=== PATIENT | male | born 1960 | race Caucasian/White ===

== ENCOUNTER 2017-03-30 11:43 | Inpatient (IN) | payer OTHER ==
[~2017-03-30] VITALS: Ht 182.9 cm; Wt 99.1 kg
[~2017-03-30 11:43] MED LIST: FOLI-49; GLIM2TAB PO; LEVA0.3112; LEVE100018; LEVE500S8 PO; MONT10TA21; PHEN64.8; SITA50TA2 PO; [UNRECOGNIZED DRUG - CODE]
--- NOTE | 2017-03-30 11:52 | ERD ---
ER Documentation Chief Complaint Chief Complaint SEIZURE LAST NIGHT SEVERAL TIMES. NO TRAUMA. NO NEURO DEF AT THIS TIME. HPI The patient is a 56-year-old male, presenting to the ER because of 3 seizure last night, a seizure this morning. Last seizure was about 9 AM this morning lasted about 20 minutes according to the patient. He was discharged from [facility] 2 days ago for seizure disorder. Really taking Keppra 1500 mg twice a day. He complains of urinary incontinence this morning, his headache, trauma, neck pain, chest pain, dyspnea, abdominal pain, vomiting, dysuria, diarrhea. He smoke a pack a day, denies drinking, denies illicit drug Medical history: Seizure disorder, diabetes mellitus, hypertension, COPD, asthma Surgical history: Cranioplasty ROS All systems reviewed and are negative except as per history of present illness. Medications Home Meds Reported Medications Sitagliptin* (Januvia*) 50 Mg Tablet, 50 MG PO DAILY, #30 TAB 03/30/17 Levetiracetam* (Keppra*) 500 Mg Tablet, 1500 MG PO BID, TAB 03/30/17 Glimepiride* (Glimepiride*) 2 Mg Tablet, 2 MG PO WITH BREAKFAST, TAB 06/26/14 Discontinued Reported Medications Sitagliptin* (Januvia*) 50 Mg Tablet, 50 MG PO DAILY, TAB 06/26/14 Levetiracetam* (Keppra*) 500 Mg/5 Ml Solution, 750 MG PO BID, BOTTLE 06/26/14 Folic Acid* (Folic Acid*) 1 Mg Tablet 05/14/10 Levalbuterol* (Xopenex*) 0.31 Mg/3 Ml Nebu 05/14/10 Phenobarbital* (Phenobarbital*) 64.8 Mg Tablet 05/14/10 Montelukast Sodium* (Singulair*) 10 Mg Tablet 05/04/10 Levetiracetam* (Keppra*) 1,000 Mg Tablet 05/04/10 Theophylline* (Otis-Dur*) 100 Mg Tabsr 05/04/10 Allergies Allergies: Coded Allergies: No Known Allergies (Verified Allergy, Mild, 03/30/17) PMhx/Soc History of Surgery: No Anesthesia Reaction: No Hx Neurological Disorder: No Hx Respiratory Disorders: Yes (ASTHMA) Hx Cardiac Disorders: Yes (HTN) Hx Psychiatric Problems: No Hx Miscellaneous Medical Probl: No Hx Alcohol Use: Yes Hx Substance Use: No Hx Tobacco Use: No Physical Exam Vitals Vital Signs Date Time Temp Pulse Resp B/P Pulse Ox O2 Delivery O2 Flow Rate FiO2 03/30/17 13:21 92 17 157/90 100 Room Air 03/30/17 11:46 98.5 82 21 162/98 98 Physical Exam Const: No acute distress. Head: Atraumatic. Eyes: Normal Conjunctiva. ENT: Normal External Ears, Nose and Mouth. Neck: Full range of motion. No meningismus. Resp: Clear to auscultation bilaterally. Cardio: Regular rate and rhythm. Abd: Soft, non distended, normal bowel sounds, non tender. Skin: No petechiae or rashes. Back: No midline or flank tenderness. Ext: No cyanosis, or edema. Neur: Awake and alert. No focal deficit. No tongue bite Psych: Normal Mood and Affect. Result Diagram: 03/30/17 1200 03/30/17 1200 Results 24 hrs Laboratory Tests Test 03/30/17 11:57 03/30/17 12:00 Bedside Glucose 201mg/dL White Blood Count 11.310^3/ul Red Blood Count 5.1610^6/ul Hemoglobin 15.1g/dl Hematocrit 42.8% Mean Corpuscular Volume 82.9fl Mean Corpuscular Hemoglobin 29.3pg Mean Corpuscular Hemoglobin Concent 35.3g/dl Red Cell Distribution Width 13.1% Platelet Count 64418^3/UL Mean Platelet Volume 11.5fl Neutrophils % 77.7% Lymphocytes % 12.6% Monocytes % 6.8% Eosinophils % 1.8% Basophils % 0.6% Nucleated Red Blood Cells % 0.0/100WBC Neutrophils # 8.810^3/ul Lymphocytes # 1.410^3/ul Monocytes # 0.810^3/ul Eosinophils # 0.210^3/ul Basophils # 0.110^3/ul Nucleated Red Blood Cells # 0.010^3/ul Sodium Level 141mmol/L Potassium Level 3.8mmol/L Chloride Level 103mmol/L Carbon Dioxide Level 24mmol/L Anion Gap 18 Blood Urea Nitrogen 8mg/dl Creatinine 1.06mg/dl Glucose Level 211mg/dl Calcium Level 9.6mg/dl Total Bilirubin 0.4mg/dl Direct Bilirubin 0.00mg/dl Indirect Bilirubin 0.4mg/dl Aspartate Amino Transf (AST/SGOT) 25IU/L Alanine Aminotransferase (ALT/SGPT) 39IU/L Alkaline Phosphatase 135IU/L Total Protein 7.9g/dl Albumin 4.4g/dl Globulin 3.50g/dl Albumin/Globulin Ratio 1.25 Ethyl Alcohol Level < 10.0mg/dl Procedures/MDM [place] [id number] Radiology Main Line: [phone] DIAGNOSTIC IMAGING REPORT Patient: SHARONA BATES : 1960 Age: 56 Sex: M MR #: [id number] DOS: 03/30/17 1153 Ordering MD: ADRIEL PETERSEN MD Location: E/R Room/Bed: PROCEDURE: XR Chest. CLINICAL INDICATION: Shortness of breath TECHNIQUE: Single portable view of the chest was obtained COMPARISON: CR CHEST 05/08/2014 FINDINGS: The trachea is midline. The cardiac silhouette is enlarged and pulmonary vascularity are within normal limits. There are bilateral chronic lung changes. Lungs otherwise clear. The costophrenic angles are sharp. IMPRESSION: 1. Bilateral chronic lung changes. No evidence of acute cardiopulmonary disease. RPTAT: AAPP Physician Jose R Date Time Electronically viewed and signed by Physician Jose R on 03/30/2017 12:35 JL/ CC: ADRIEL PETERSEN MD [place] [id number] Radiology Main Line: [phone] DIAGNOSTIC IMAGING REPORT Patient: SHARONA BATES : 1960 Age: 56 Sex: M MR #: [id number] DOS: 03/30/17 1153 Ordering MD: ADRIEL PETERSEN MD Location: E/R Room/Bed: PROCEDURE: CT Brain without contrast. CLINICAL INDICATION: Neurologic deficit TECHNIQUE: A CT of the brain was performed on multidetector high-resolution CT scanner utilizing axial sections from the skull base through the vertex without contrast. One or more of the following dose reduction techniques were used: Automated exposure control, Adjustment of the mA and/or kV according to patient size, and/or use of iterative reconstruction technique. DICOM images are available. DOSE: CTDI = 44 mGy and the DLP = 720 mGy-cm. COMPARISON: Head CT 05/08/2014 FINDINGS: Similar apperance of the right-sided craniectomy and cranioplasty changes with extensive, chronic encephalomalacia right frontal lobe, right operculum, right insula, right temporal lobe and right parietal lobe. Right orbital roof defect, unchanged. There is compensatory enlargement right lateral ventricle. No acute intracranial hemorrhage, significant mass effect or midline shift. Paranasal sinus mucosal thickening. Mastoids appear clear. IMPRESSION: No significant change identified since 05/08/2014. Right-sided craniectomy and cranioplasty changes with extensive, chronic right cerebral encephalomalacia is probably a sequela of prior trauma and/or infarct. No acute hemorrhage or mass effect. RPTAT: AA .Kevin Vaughn MD, MD Date Time Electronically viewed and signed by .Kevin Vaughn MD, MD on 03/30/2017 12:46 .T/ CC: ADRIEL PETERSEN MD EKG: Read by emergency physician Rate/Rhythm: Normal Sinus Rhythm 69 beats/min QRS, ST, T-waves: No ST elevation, no T inversion Impression: Normal EKG MEDICAL MAKING DECISION: The patient is a 56-year-old male, presenting to the ER because of acute status epilepticus despite of taking maximum dose of Keppra 3000 mg/day. UDS/Phenobarb/Theophyline: pending The differential diagnoses considered include but are not limited to medical noncompliance, electrolyte abnormality, psychiatric illness, dehydration Departure Diagnosis: Primary Impression: Status epilepticus Condition: Stable Comments I discussed the findings with the patient. I discussed the patient with the hospitalist Dr. Chong at 1:40 PM who was made aware of the lab, the treatment, the patient condition, pending lab. The patient is admitted to [facility] Disclaimer: Inadvertent spelling and grammatical errors are likely due to EHR/ dictation software use and do not reflect on the overall quality of patient care. Also, please note that the electronic time recorded on this note does not necessarily reflect the actual time of the patient encounter. ADRIEL PETERSEN MD Mar 30, 2017 11:52
[2017-03-30] MEDS ORDERED: LEVE-5 PO (12:15)
[2017-03-30] MEDS ORDERED: SITA50TA2 PO (12:16)
[2017-03-30 12:32] LABS: BASOPHIL # 0.1 10^3/ul (0.0-0.1); BASOPHILS % 0.6 % (0.0-2.0); EOSINOPHILS # 0.2 10^3/ul (0.0-0.5); EOSINOPHILS % 1.8 % (0.0-7.0); HEMATOCRIT 42.8 % (42.0-52.0); HEMOGLOBIN 15.1 g/dl (14.0-18.0); LYMPHOCYTES # 1.4 10^3/ul (0.8-2.9); LYMPHOCYTES % 12.6 % (15.0-51.0); MEAN CORPUSCULAR HEMOGLOBIN 29.3 pg (29.0-33.0); MEAN CORPUSCULAR HGB CONC 35.3 g/dl (32.0-37.0); MEAN CORPUSCULAR VOLUME 82.9 fl (82.0-101.0); MEAN PLATELET VOLUME 11.5 fl (7.4-10.4); MONOCYTE # 0.8 10^3/ul (0.3-0.9); MONOCYTES % 6.8 % (0.0-11.0); NEUTROPHIL # 8.8 10^3/ul (1.6-7.5); NEUTROPHILS % 77.7 % (39.0-77.0); PLATELET COUNT 265 10^3/UL (140-415); RED BLOOD COUNT 5.16 10^6/ul (4.70-6.10); RED CELL DISTRIBUTION WIDTH 13.1 % (11.5-14.5); WHITE BLOOD COUNT 11.3 10^3/ul (4.8-10.8)
--- NOTE | 2017-03-30 12:35 | RADRPT ---
PROCEDURE: XR Chest. CLINICAL INDICATION: Shortness of breath TECHNIQUE: Single portable view of the chest was obtained COMPARISON: CR CHEST 05/08/2014 FINDINGS: The trachea is midline. The cardiac silhouette is enlarged and pulmonary vascularity are within norm al limits. There are bilateral chronic lung changes. Lungs otherwise clear. The costophrenic angles are sharp. IMPRESSION: 1. Bilateral chronic lung changes. No evidence of acute cardiopulmonary disease. RPTAT: AAPP Physician Jose R Date Time Electronically viewed and signed by Nery Zamora Physician on 03/30/2017 12:35 JOHN/
--- NOTE | 2017-03-30 12:46 | RADRPT ---
PROCEDURE: CT Brain without contrast. CLINICAL INDICATION: Neurologic deficit TECHNIQUE: A CT of the brain was performed on multidetector high-resolution CT scanner utilizing a xial sections from the skull base through the vertex without contrast. One or more of the following dose reduction techniques were used: Automated exposure control, Adjustment of the mA and/or kV acc ording to patient size, and/or use of iterative reconstruction technique. DICOM images are available . DOSE: CTDI = 44 mGy and the DLP = 720 mGy-cm. COMPARISON: Head CT 05/08/2014 FINDINGS: Similar apperance of the right-sided craniectomy and cranioplasty changes with extensive, chronic en cephalomalacia right frontal lobe, right operculum, right insula, right temporal lobe and right haider etal lobe. Right orbital roof defect, unchanged. There is compensatory enlargement right lateral luis fernando tricle. No acute intracranial hemorrhage, significant mass effect or midline shift. Paranasal sinus mucosal thickening. Mastoids appear clear. IMPRESSION: No significant change identified since 05/08/2014. Right-sided craniectomy and cranioplasty changes with extensive, chronic right cerebral encephalomal acia is probably a sequela of prior trauma and/or infarct. No acute hemorrhage or mass effect. RPTAT: AA .Kevin Vaughn MD, Date Time Electronically viewed and signed by .Kevin Vaughn MD, MD on 03/30/2017 12:46 .T/
[2017-03-30 13:01] LABS: ALBUMIN 4.4 g/dl (3.3-4.9); ALBUMIN/GLOBULIN RATIO 1.25; BILIRUBIN,INDIRECT 0.4 mg/dl (0-1.1); BILIRUBIN,TOTAL 0.4 mg/dl (0.2-1.3); CALCIUM 9.6 mg/dl (8.4-10.2); CREATININE 1.06 mg/dl (0.61-1.24); POTASSIUM 3.8 mmol/L (3.5-5.1); TOTAL PROTEIN 7.9 g/dl (6.1-8.1)
[2017-03-30 15:15] VITALS: BP 159/97; PULSE 62; RESP 18
[2017-03-30 15:44] VITALS: PULSE 58
[2017-03-30 16:00] VITALS: PULSE 74
[2017-03-30] MEDS: SOD CHLORIDE 0.45% 1,000 ML IV SCH (16:48)
[2017-03-30 16:54] VITALS: BP 159/97; RESP 18
[2017-03-30] MEDS ORDERED: DOCUSATE SODIUM 100 MG CAP PO PRN (17:00)
[2017-03-30] MEDS ORDERED: MAGNESIUM HYDROXIDE 30ML CUP PO PRN (17:00)
[2017-03-30] MEDS ORDERED: ONDANSETRON 4 MG INJ IV PRN (17:00)
[2017-03-30] MEDS ORDERED: LORAZEPAM 2 MG INJ IV PRN (17:00)
[2017-03-30] MEDS ORDERED: NA PHOSPHATE/BIPHOS 133 ML ENEMA PR PRN (17:00)
[2017-03-30] MEDS ORDERED: NITROGLYCERIN (SL) 0.4 MG TAB SL PRN (17:00)
[2017-03-30] MEDS ORDERED: HYDROCODONE/APAP (5/325) TAB PO PRN (17:00)
[2017-03-30] MEDS ORDERED: ALBUTEROL/IPRATROPIUM (NEB) 3 ML AMP HHN PRN (17:00)
[2017-03-30] MEDS ORDERED: morphine 2 MG INJ IV PRN (17:00)
[2017-03-30] MEDS ORDERED: ACETAMINOPHEN 325 MG TAB PO PRN (17:00)
[2017-03-30] MEDS ORDERED: NACL 0.9% 3 ML SYG IV SCH (17:00)
[2017-03-30] MEDS: INSULIN ASPART [NOVOLOG] 3 ML PEN SC SCH ×2 (17:18→21:00)
[2017-03-30] MEDS ORDERED: GLUCOSE GEL 15 GRAM TUBE BUCCAL PRN (17:30)
[2017-03-30] MEDS ORDERED: GLUCAGON 1 MG INJ IM PRN (17:30)
[2017-03-30] MEDS ORDERED: GLUCOSE GEL 15 GRAM TUBE PO PRN ×2 (17:30)
[2017-03-30] MEDS ORDERED: DEXTROSE 50% 50 ML SYRINGE IV PRN ×2 (17:30)
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
[2017-03-30 20:00] VITALS: BP 189/97; RESP 16
[2017-03-30 20:05] VITALS: PULSE 64
[2017-03-30] MEDS: hydrALAzine 20 MG INJ IV PRN (20:07)
[2017-03-30] MEDS: HEPARIN 5,000 UNIT/0.5 ML VIAL SC SCH (20:12)
[2017-03-30] MEDS: LEVETIRACETAM 1500 MG (PMX) 100 ML IVPB SCH (21:29)
[2017-03-30 23:19] LABS: BARBITURATES Positive (NEGATIVE); BENZODIAZEPINES Negative (NEGATIVE); CANNABINOIDS Positive (NEGATIVE); COCAINE Negative (NEGATIVE); OPIATES Negative (NEGATIVE)
[2017-03-31] VITALS (16 sets, daily range): BP systolic 152–180; BP diastolic 78–103; PULSE 55–80; RESP 16–20
[2017-03-31] MEDS: ACCU-CHEK XX SCH (02:00)
[2017-03-31] MEDS: SOD CHLORIDE 0.45% 1,000 ML IV SCH ×2 (05:53→20:34)
[2017-03-31 08:30] LABS: BASOPHIL # 0.1 10^3/ul (0.0-0.1); BASOPHILS % 0.6 % (0.0-2.0); EOSINOPHILS # 0.3 10^3/ul (0.0-0.5); EOSINOPHILS % 2.7 % (0.0-7.0); HEMATOCRIT 41.7 % (42.0-52.0); HEMOGLOBIN 14.6 g/dl (14.0-18.0); LYMPHOCYTES # 1.9 10^3/ul (0.8-2.9); LYMPHOCYTES % 19.2 % (15.0-51.0); MEAN CORPUSCULAR HEMOGLOBIN 29.2 pg (29.0-33.0); MEAN CORPUSCULAR VOLUME 83.4 fl (82.0-101.0); MEAN PLATELET VOLUME 11.5 fl (7.4-10.4); MONOCYTE # 0.9 10^3/ul (0.3-0.9); MONOCYTES % 8.9 % (0.0-11.0); NEUTROPHIL # 6.6 10^3/ul (1.6-7.5); NEUTROPHILS % 68.3 % (39.0-77.0); PLATELET COUNT 257 10^3/UL (140-415); RED CELL DISTRIBUTION WIDTH 13.2 % (11.5-14.5); WHITE BLOOD COUNT 9.7 10^3/ul (4.8-10.8)
[2017-03-31] MEDS: INSULIN ASPART [NOVOLOG] 3 ML PEN SC SCH ×4 (08:50→20:38)
[2017-03-31] MEDS: HEPARIN 5,000 UNIT/0.5 ML VIAL SC SCH ×2 (08:50→20:39)
[2017-03-31 09:13] LABS: CALCIUM 9.6 mg/dl (8.4-10.2); CHOL/HDL RATIO 3.8 RATIO; CREATININE 0.81 mg/dl (0.61-1.24); PHOSPHORUS 3.4 mg/dl (2.5-4.9); POTASSIUM 3.9 mmol/L (3.5-5.1)
[2017-03-31] MEDS: LEVETIRACETAM 1500 MG (PMX) 100 ML IVPB SCH ×2 (09:23→20:29)
[2017-03-31 09:32] LABS: THYROID STIMULATING HORMONE 0.737 MIU/L (0.465-4.680)
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
[2017-03-31] MEDS: PHENOBARBITAL 32.4 MG TAB PO SCH ×2 (14:25→20:29)
[2017-03-31] MEDS: hydrALAzine 20 MG INJ IV PRN (16:24)
[2017-04-01] VITALS (13 sets, daily range): BP systolic 146–178; BP diastolic 71–99; PULSE 68–80; RESP 16–20
[2017-04-01] MEDS: ACCU-CHEK XX SCH (02:00)
[2017-04-01] MEDS: LEVETIRACETAM 1500 MG (PMX) 100 ML IVPB SCH ×2 (07:46→21:09)
[2017-04-01] MEDS: SOD CHLORIDE 0.45% 1,000 ML IV SCH ×2 (07:46→21:11)
[2017-04-01] MEDS: HEPARIN 5,000 UNIT/0.5 ML VIAL SC SCH ×2 (07:48→21:10)
[2017-04-01] MEDS: INSULIN ASPART [NOVOLOG] 3 ML PEN SC SCH ×4 (07:49→21:10)
[2017-04-01] MEDS: PHENOBARBITAL 32.4 MG TAB PO SCH ×2 (07:51→21:09)
[2017-04-01 08:21] LABS: BASOPHILS % 0.3 % (0.0-2.0); EOSINOPHILS # 0.2 10^3/ul (0.0-0.5); EOSINOPHILS % 1.8 % (0.0-7.0); HEMATOCRIT 42.3 % (42.0-52.0); HEMOGLOBIN 14.5 g/dl (14.0-18.0); LYMPHOCYTES # 2.4 10^3/ul (0.8-2.9); LYMPHOCYTES % 20.2 % (15.0-51.0); MEAN CORPUSCULAR HEMOGLOBIN 28.5 pg (29.0-33.0); MEAN CORPUSCULAR HGB CONC 34.3 g/dl (32.0-37.0); MEAN CORPUSCULAR VOLUME 83.3 fl (82.0-101.0); MEAN PLATELET VOLUME 11.3 fl (7.4-10.4); MONOCYTE # 1.1 10^3/ul (0.3-0.9); MONOCYTES % 9.3 % (0.0-11.0); NEUTROPHIL # 8.1 10^3/ul (1.6-7.5); NEUTROPHILS % 68.1 % (39.0-77.0); PLATELET COUNT 259 10^3/UL (140-415); RED BLOOD COUNT 5.08 10^6/ul (4.70-6.10); RED CELL DISTRIBUTION WIDTH 12.8 % (11.5-14.5); WHITE BLOOD COUNT 11.8 10^3/ul (4.8-10.8)
[2017-04-01 08:38] LABS: CALCIUM 9.3 mg/dl (8.4-10.2); CREATININE 0.87 mg/dl (0.61-1.24); POTASSIUM 3.7 mmol/L (3.5-5.1)
[2017-04-01] MEDS ORDERED: PHE30 PO (12:15)
--- NOTE | 2017-04-01 12:15 | PDOCDIS ---
Discharge Instructions CONDITION Patient Condition: Stable HOME CARE INSTRUCTIONS: Special Diet: carb control ACTIVITY: Activity Restrictions: Slowly Increase Activity FOLLOW UP/APPOINTMENTS Follow-up Plan Please take your medications as prescribed. If you notice any seizure activity , please go to your care doctor and call him, go to ER, or call 911. ASHWINI AMADOR Apr 01, 2017 12:14
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
[2017-04-01] MEDS: hydrALAzine 20 MG INJ IV PRN (17:29)
[2017-04-02] VITALS (11 sets, daily range): BP systolic 155–162; BP diastolic 86–99; PULSE 49–84; RESP 19–20
[2017-04-02] MEDS: ACCU-CHEK XX SCH (01:54)
[2017-04-02] MEDS: INSULIN ASPART [NOVOLOG] 3 ML PEN SC SCH ×2 (08:54→11:59)
[2017-04-02 08:58] LABS: BASOPHIL # 0.1 10^3/ul (0.0-0.1); BASOPHILS % 0.7 % (0.0-2.0); EOSINOPHILS # 0.2 10^3/ul (0.0-0.5); EOSINOPHILS % 2.4 % (0.0-7.0); HEMATOCRIT 42.4 % (42.0-52.0); HEMOGLOBIN 14.7 g/dl (14.0-18.0); MEAN CORPUSCULAR HEMOGLOBIN 28.9 pg (29.0-33.0); MEAN CORPUSCULAR HGB CONC 34.7 g/dl (32.0-37.0); MEAN CORPUSCULAR VOLUME 83.3 fl (82.0-101.0); MEAN PLATELET VOLUME 11.2 fl (7.4-10.4); MONOCYTE # 0.8 10^3/ul (0.3-0.9); MONOCYTES % 8.8 % (0.0-11.0); NEUTROPHIL # 5.9 10^3/ul (1.6-7.5); NEUTROPHILS % 65.9 % (39.0-77.0); PLATELET COUNT 243 10^3/UL (140-415); RED BLOOD COUNT 5.09 10^6/ul (4.70-6.10)
[2017-04-02] MEDS: PHENOBARBITAL 32.4 MG TAB PO SCH (09:06)
[2017-04-02] MEDS: LEVETIRACETAM 1500 MG (PMX) 100 ML IVPB SCH (09:06)
[2017-04-02] MEDS: HEPARIN 5,000 UNIT/0.5 ML VIAL SC SCH (09:06)
[2017-04-02 09:23] LABS: CALCIUM 9.1 mg/dl (8.4-10.2); CREATININE 0.78 mg/dl (0.61-1.24); POTASSIUM 3.8 mmol/L (3.5-5.1)
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
[2017-04-02] MEDS ORDERED: MONTELUKAST 5 MG TAB PO SCH (11:30)
[2017-04-02] MEDS: SOD CHLORIDE 0.45% 1,000 ML IV SCH (11:53)
[2017-04-02] MEDS ORDERED: CALCIUM CARBONATE 500 MG CHEW TAB PO ONE (13:30)
== END 2017-04-02 14:12 | disposition home or self-care (01) | DRG 101 ==
LOC: E/R 11:43 → MS4 13:43
PROVIDERS: ADMIT Hospitalist; ATTEND Hospitalist
DX: G40.801 Other epilepsy, not intractable, with status epilepticus (principal); I10 Essential (primary) hypertension; J44.9 Chronic obstructive pulmonary disease, unspecified; E11.9 Type 2 diabetes mellitus without complications; E78.00 Pure hypercholesterolemia, unspecified; V89.2XXS Person injured in unspecified motor-vehicle accident, traffic, sequela; Z79.4 Long term (current) use of insulin; Z86.19 Personal history of other infectious and parasitic diseases; Z98.890 Other specified postprocedural states
CPT/HCPCS: 36415; 70450; 71010; 80048; 80053; 80061; 80198; 80306; 80307; 82962; 83036; 83735; 84100; 84439; 84443; 85025; 87081; 93005; 95819; 97162; J0360; J1644; J1815; J1953; J2405

== ENCOUNTER 2017-09-29 22:07 | Inpatient (IN) | END 2017-10-04 12:57 | disposition home or self-care (01) | DRG 101 ==

== ENCOUNTER 2017-10-20 15:04 | Emergency (ER) | END 2017-10-20 21:45 | disposition home or self-care (01) ==

== ENCOUNTER 2017-11-29 15:03 | Emergency (ER) | END 2017-11-29 18:16 | disposition home or self-care (01) ==

== ENCOUNTER 2018-06-28 07:57 | Inpatient (IN) | payer OTHER ==
[~2018-06-28] VITALS: Ht 182.9 cm; Wt 83.5 kg
[~2018-06-28 07:57] MED LIST changes: +AMLO-147 PO; +ATOR20TA38 PO; +BENA10TA4 PO; -FOLI-49; -GLIM2TAB PO; -LEVA0.3112; +LEVA15HF6 INH; -LEVE100018; -LEVE500S8 PO; +LEVE750T70 PO; -MONT10TA21; +MONT10TA24 PO; -PHEN64.8; +PHEN64.8 PO; +THEO400T2 PO; -[UNRECOGNIZED DRUG - CODE]
[2018-06-28 12:45] VITALS: Ht 182.9 cm; Wt 83.5 kg
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
[2018-06-28] MEDS ORDERED: LORAZEPAM 2 MG INJ IV PRN (14:00)
[2018-06-28] MEDS ORDERED: ACETAMINOPHEN 325 MG TAB PO PRN (14:00)
[2018-06-28] MEDS ORDERED: ONDANSETRON 4 MG INJ IV PRN (14:00)
[2018-06-28] MEDS ORDERED: NACL 0.9% 3 ML SYG IV SCH (14:00)
[2018-06-28 14:52] VITALS: BP 157/95; PULSE 56; RESP 18
[2018-06-28] MEDS ORDERED: GLUCOSE GEL 15 GRAM TUBE BUCCAL PRN (15:00)
[2018-06-28] MEDS ORDERED: GLUCOSE GEL 15 GRAM TUBE PO PRN ×2 (15:00)
[2018-06-28] MEDS ORDERED: DEXTROSE 50% 50 ML SYRINGE IV PRN ×2 (15:00)
[2018-06-28] MEDS ORDERED: GLUCAGON 1 MG INJ IM PRN (15:00)
[2018-06-28] MEDS: LEVETIRACETAM 1000 MG (PMX) 100 ML IVPB SCH (16:10)
[2018-06-28] MEDS: traMADol 50 MG TAB PO PRN ×2 (16:22→23:37)
[2018-06-28] MEDS: INSULIN ASPART [NOVOLOG] 3 ML PEN SC SCH ×3 (19:00→20:58)
[2018-06-28] MEDS: INSULIN GLARGINE [LANTus] (100 UNITS/ML) SYG SC SCH (20:00)
[2018-06-28] MEDS: ATORVASTATIN 20 MG TAB PO SCH (20:41)
[2018-06-28] MEDS: PHENOBARBITAL 32.4 MG TAB PO SCH (20:41)
[2018-06-28 20:59] VITALS: BP 145/94; PULSE 62; RESP 20
[2018-06-28] MEDS ORDERED: INSULIN GLARGINE [LANTus] (100 UNITS/ML) SYG SC ONE (21:30)
[2018-06-29] MEDS: LEVETIRACETAM 1000 MG (PMX) 100 ML IVPB SCH ×3 (00:50→21:57)
[2018-06-29 02:00] VITALS: BP 134/81; PULSE 60; RESP 18
[2018-06-29 08:00] VITALS: BP 147/91; PULSE 65; RESP 19
[2018-06-29] MEDS: INSULIN ASPART [NOVOLOG] 3 ML PEN SC SCH ×7 (08:43→21:00)
[2018-06-29] MEDS: PHENOBARBITAL 32.4 MG TAB PO SCH ×2 (08:46→20:59)
[2018-06-29] MEDS: ENOXAPARIN 40 MG/0.4 ML SYG SC SCH (08:47)
[2018-06-29] MEDS: BENAZEPRIL 10 MG TAB PO SCH (08:48)
[2018-06-29] MEDS: traMADol 50 MG TAB PO PRN ×2 (09:21→22:44)
--- NOTE | 2018-06-29 10:43 | PN ---
Date/Time of Note Date/Time of Note DATE: 06/29/18 TIME: 10:40 Assessment/Plan VTE Prophylaxis Risk score (from Nsg)>0 risk: 2 SCD applied (from Nsg): Yes Pharmacological prophylaxis: LMWH Lines/Catheters IV Catheter Type (from Nrsg): Saline Lock Urinary Cath still in place: No Assessment/Plan Hospital Course SUBJECTIVE: Complains of left lower extremity pain. OBJECTIVE: Physical Exam General: Adequately build 57 year-old male lying in bed in no apparent distress. HEENT: Normocephalic. Eyes: Anicteric sclerae, conjunctivae clear. ENT: Nasal septum midline, oral mucosa is moist. Poor dentition. Neck supple, no JVD noticed. Respiratory: Bilaterally diminished breath sounds. No use of accessory muscles of respiration. No adventitious breath sounds. Cardiovascular: S1, S2 heard. Regular rate and rhythm. Abdomen: Soft, nontender, and nondistended. Bowel sounds positive in all 4 quadrants. Genitourinary: Deferred. Extremities: No cyanosis, no clubbing, no edema. Peripheral pulses palpable. Neurologic: The patient is awake, alert, and oriented. Right eye blindness. Skin: Normal skin turgor. No skin rashes. Labs & Vitals per chart ASSESSMENT & PLAN 57-year-old male with comorbidities including seizure disorder, diabetes mellitus type 2, dyslipidemia, hypertension, and COPD who had an apparent seizure episode because of subtherapeutic phenobarbital since the patient ran out of his phenobarbital. He was initially evaluated at an outside emergency room and is being transferred to [facility] for further evaluation and management because of insurance reasons. 1. Seizure disorder. -Continue Keppra. -Continue phenobarbital. -Seizure precautions. 2. Diabetes mellitus type 2. -Continue the patient on sliding scale insulin along with pre-meal insulin and basal insulin. -Hemoglobin A1c 8.3. 3. Dyslipidemia. -Continue statins. 4. COPD. -Continue LABA and theophylline. -Monitor closely for any bronchospasms. 5. Hypertension. -Continue antihypertensives. 6. Generalized weakness. -Physical therapy evaluation. 7. Fluids, electrolytes, and nutrition. -Carbohydrate controlled diet. 8. DVT prophylaxis -Subcutaneous Lovenox. 9. Plan. -Continue anticonvulsants. -Await physical therapy evaluation The patient was seen in collaboration with Dr. Vivar Result Diagram: 06/29/18 0633 06/29/18 0633 Results 24hrs Laboratory Tests Test 06/28/18 16:18 06/28/18 17:25 06/28/18 18:47 06/28/18 20:24 White Blood Count 9.9 Red Blood Count 4.95 Hemoglobin 13.7 L Hematocrit 40.3 L Mean Corpuscular Volume 81.4 L Mean Corpuscular 27.7 L Hemoglobin Mean Corpuscular 34.0 Hemoglobin Concent Red Cell Distribution 13.8 Width Platelet Count 254 Mean Platelet Volume 10.7 H Immature Granulocytes % 0.300 Neutrophils % 68.5 Lymphocytes % 21.8 Monocytes % 7.0 Eosinophils % 1.9 Basophils % 0.5 Nucleated Red Blood 0.0 Cells % Immature Granulocytes # 0.030 Neutrophils # 6.8 Lymphocytes # 2.2 Monocytes # 0.7 Eosinophils # 0.2 Basophils # 0.1 Nucleated Red Blood 0.0 Cells # Sodium Level 138 Potassium Level 3.6 Chloride Level 102 Carbon Dioxide Level 24 Anion Gap 12 Blood Urea Nitrogen 7 Creatinine 0.76 Est Glomerular Filtrat > 60 Rate mL/min Glucose Level 173 Hemoglobin A1c 8.3 H Calcium Level 9.4 Phosphorus Level 3.2 Magnesium Level 2.1 Total Bilirubin 0.5 Direct Bilirubin 0.00 Indirect Bilirubin 0.5 Aspartate Amino 18 Transf (AST/SGOT) Alanine 25 Aminotransferase (ALT/SG PT) Alkaline Phosphatase 99 Total Protein 6.7 Albumin 3.9 Globulin 2.80 Albumin/Globulin Ratio 1.39 Thyroid Stimulating 0.513 Hormone (TSH) Free Thyroxine 1.16 Phenobarbital Level <5.0 L Theophylline Level 2.6 L Urine Opiates Screen Negative Urine Barbiturates Negative Urine Amphetamines Negative Screen Urine Benzodiazepines Negative Screen Urine Cocaine Screen Negative Urine Cannabinoids Positive Bedside Glucose 151 82 Test 06/29/18 06:33 06/29/18 07:49 White Blood Count 10.3 Red Blood Count 4.85 Hemoglobin 13.5 L Hematocrit 40.8 L Mean Corpuscular Volume 84.1 Mean Corpuscular 27.8 L Hemoglobin Mean Corpuscular 33.1 Hemoglobin Concent Red Cell Distribution 13.6 Width Platelet Count 237 Mean Platelet Volume 11.0 H Immature Granulocytes % 0.400 Neutrophils % 64.9 Lymphocytes % 25.0 Monocytes % 6.8 Eosinophils % 2.4 Basophils % 0.5 Nucleated Red Blood 0.0 Cells % Immature Granulocytes # 0.040 H Neutrophils # 6.7 Lymphocytes # 2.6 Monocytes # 0.7 Eosinophils # 0.3 Basophils # 0.1 Nucleated Red Blood 0.0 Cells # Prothrombin Time 13.6 Prothrombin Time Ratio 1.1 INR International 1.03 Normalized Ratio Activated 27.0 Partial Thromboplast Time Sodium Level 139 Potassium Level 3.6 Chloride Level 106 Carbon Dioxide Level 24 Anion Gap 9 Blood Urea Nitrogen 8 Creatinine 0.66 Est Glomerular Filtrat > 60 Rate mL/min Glucose Level 156 Calcium Level 9.3 Phosphorus Level 4.1 Magnesium Level 2.1 Triglycerides Level 111 Cholesterol Level 123 LDL Cholesterol, 64 Calculated HDL Cholesterol 37 Cholesterol/HDL Ratio 3.3 Bedside Glucose 153 Exam/Review of Systems Exam Vitals Vital Signs Date Temp Pulse Resp B/P (MAP) Pulse Ox O2 O2 Flow FiO2 Time Delivery Rate 06/29/18 98.0 65 19 147/91 97 Room Air 08:00 (109) Intake and Output 06/28/18 06/28/18 06/29/18 1515:00 23:00 07:00 IntakeIntake Total 850 ml 3600 ml OutputOutput Total 1050 ml 3200 ml BalanceBalance -200 ml 400 ml Results Results 24hrs Laboratory Tests Test 06/28/18 16:18 06/28/18 17:25 06/28/18 18:47 06/28/18 20:24 White Blood Count 9.9 Red Blood Count 4.95 Hemoglobin 13.7 L Hematocrit 40.3 L Mean Corpuscular Volume 81.4 L Mean Corpuscular 27.7 L Hemoglobin Mean Corpuscular 34.0 Hemoglobin Concent Red Cell Distribution 13.8 Width Platelet Count 254 Mean Platelet Volume 10.7 H Immature Granulocytes % 0.300 Neutrophils % 68.5 Lymphocytes % 21.8 Monocytes % 7.0 Eosinophils % 1.9 Basophils % 0.5 Nucleated Red Blood 0.0 Cells % Immature Granulocytes # 0.030 Neutrophils # 6.8 Lymphocytes # 2.2 Monocytes # 0.7 Eosinophils # 0.2 Basophils # 0.1 Nucleated Red Blood 0.0 Cells # Sodium Level 138 Potassium Level 3.6 Chloride Level 102 Carbon Dioxide Level 24 Anion Gap 12 Blood Urea Nitrogen 7 Creatinine 0.76 Est Glomerular Filtrat > 60 Rate mL/min Glucose Level 173 Hemoglobin A1c 8.3 H Calcium Level 9.4 Phosphorus Level 3.2 Magnesium Level 2.1 Total Bilirubin 0.5 Direct Bilirubin 0.00 Indirect Bilirubin 0.5 Aspartate Amino 18 Transf (AST/SGOT) Alanine 25 Aminotransferase (ALT/SG PT) Alkaline Phosphatase 99 Total Protein 6.7 Albumin 3.9 Globulin 2.80 Albumin/Globulin Ratio 1.39 Thyroid Stimulating 0.513 Hormone (TSH) Free Thyroxine 1.16 Phenobarbital Level <5.0 L Theophylline Level 2.6 L Urine Opiates Screen Negative Urine Barbiturates Negative Urine Amphetamines Negative Screen Urine Benzodiazepines Negative Screen Urine Cocaine Screen Negative Urine Cannabinoids Positive Bedside Glucose 151 82 Test 06/29/18 06:33 06/29/18 07:49 White Blood Count 10.3 Red Blood Count 4.85 Hemoglobin 13.5 L Hematocrit 40.8 L Mean Corpuscular Volume 84.1 Mean Corpuscular 27.8 L Hemoglobin Mean Corpuscular 33.1 Hemoglobin Concent Red Cell Distribution 13.6 Width Platelet Count 237 Mean Platelet Volume 11.0 H Immature Granulocytes % 0.400 Neutrophils % 64.9 Lymphocytes % 25.0 Monocytes % 6.8 Eosinophils % 2.4 Basophils % 0.5 Nucleated Red Blood 0.0 Cells % Immature Granulocytes # 0.040 H Neutrophils # 6.7 Lymphocytes # 2.6 Monocytes # 0.7 Eosinophils # 0.3 Basophils # 0.1 Nucleated Red Blood 0.0 Cells # Prothrombin Time 13.6 Prothrombin Time Ratio 1.1 INR International 1.03 Normalized Ratio Activated 27.0 Partial Thromboplast Time Sodium Level 139 Potassium Level 3.6 Chloride Level 106 Carbon Dioxide Level 24 Anion Gap 9 Blood Urea Nitrogen 8 Creatinine 0.66 Est Glomerular Filtrat > 60 Rate mL/min Glucose Level 156 Calcium Level 9.3 Phosphorus Level 4.1 Magnesium Level 2.1 Triglycerides Level 111 Cholesterol Level 123 LDL Cholesterol, 64 Calculated HDL Cholesterol 37 Cholesterol/HDL Ratio 3.3 Bedside Glucose 153 Medications Medication Current Medications IV Flush (NS 3 ml) 3 ml PER PROTOCOL IV ; Start 06/28/18 at 14:00 Ondansetron HCl (Zofran Inj) 4 mg Q6H PRN IV NAUSEA/VOMITING; Start 06/28/18 at 14:00 Acetaminophen (Tylenol Tab) 650 mg Q6H PRN PO .PAIN 1-3 OR TEMP; Start 06/28/18 at 14:00 Enoxaparin Sodium (Lovenox) 40 mg DAILY SC Last administered on 06/29/18 08:47; Admin Dose 40 MG; Start 06/29/18 at 09:00 Lorazepam (Ativan) 1 mg Q2H PRN IV Seizures; Start 06/28/18 at 14:00 Levetiracetam 100 ml @ 400 mls/hr Q12 IVPB Last administered on 06/29/18 08:4 5; Admin Dose 400 MLS/HR; Start 06/28/18 at 15:00 Phenobarbital (Luminal) 32.4 mg BID PO Last administered on 06/29/18 08:46; Admin Dose 32.4 MG; Start 06/28/18 at 21:00 Insulin Glargine (Lantus) 13 units DAILY@2000 SC ; Start 06/28/18 at 20:00 Insulin Aspart (Novolog Insulin Pen) 4 unit WITH MEALS SC Last administered on 06/29/18 08:43; Admin Dose 4 UNIT; Start 06/28/18 at 17:35 Insulin Aspart (Novolog Insulin Pen) NOVOLOG *MILD* ALGORITHM WITH MEALS BEDTIME SC Last administered on 06/29/18at 08:45; Admin Dose 1 UNIT; Start 06/28/18 at 18:05 Miscellaneous Information 1 ea NOTE XX ; Start 06/28/18 at 15:00 Glucose (Glutose) 15 gm Q15M PRN PO DECREASED GLUCOSE; Start 06/28/18 at 15:00 Glucose (Glutose) 22.5 gm Q15M PRN PO DECREASED GLUCOSE; Start 06/28/18 at 15:00 Dextrose (D50w Syringe) 25 ml Q15M PRN IV DECREASED GLUCOSE; Start 06/28/18 at 15:00 Dextrose (D50w Syringe) 50 ml Q15M PRN IV DECREASED GLUCOSE; Start 06/28/18 at 15:00 Glucagon (Glucagen) 1 mg Q15M PRN IM DECREASED GLUCOSE; Start 06/28/18 at 15:00 Glucose (Glutose) 15 gm Q15M PRN BUCCAL DECREASED GLUCOSE; Start 06/28/18 at 15 :00 Atorvastatin Calcium (Lipitor) 20 mg QHS PO Last administered on 06/28/18at 20:41; Admin Dose 20 MG; Start 06/28/18 at 21:00 Benazepril HCl (Lotensin) 10 mg DAILY PO Last administered on 06/29/18 08:48; Admin Dose 10 MG; Start 06/29/18 at 09:00 Tramadol HCl (Ultram) 50 mg Q6H PRN PO MODERATE PAIN LEVEL 4-6 Last administered on 06/29/18 09:21; Admin Dose 50 MG; Start 06/28/18 at 16:30 GIANNA CHAVEZ NP Jun 29, 2018 10:42
[2018-06-29] MEDS: ARFORMOTEROL TARTRATE 15MCG/2 ML AMP NEB SCH ×2 (12:30→20:06)
[2018-06-29] MEDS: THEOPHYLLINE (SR) 200 MG CAPSR PO SCH (12:40)
[2018-06-29] MEDS ORDERED: THEOPHYLLINE (SR) 400 MG TAB.ER.24HR PO SCH (13:00)
[2018-06-29 14:00] VITALS: BP 140/88; PULSE 69; RESP 18
[2018-06-29 20:00] VITALS: BP 118/79; PULSE 58; RESP 19
[2018-06-29] MEDS: ATORVASTATIN 20 MG TAB PO SCH (20:59)
[2018-06-29] MEDS: INSULIN GLARGINE [LANTus] (100 UNITS/ML) SYG SC SCH (20:59)
[2018-06-29] MEDS: MONTELUKAST 10 MG TAB PO SCH (20:59)
[2018-06-30 02:00] VITALS: BP 120/83; PULSE 61; RESP 18
[2018-06-30] MEDS: traMADol 50 MG TAB PO PRN ×2 (04:39→18:24)
[2018-06-30] MEDS ORDERED: AL HYDROX/MG HYDROX/SIMETH 30 ML CUP PO ONE (05:00)
[2018-06-30] MEDS: PANTOPRAZOLE (EC) 40 MG TAB PO SCH (06:39)
[2018-06-30] MEDS: ARFORMOTEROL TARTRATE 15MCG/2 ML AMP NEB SCH ×2 (07:49→20:04)
[2018-06-30] MEDS: INSULIN ASPART [NOVOLOG] 3 ML PEN SC SCH ×7 (08:00→20:38)
[2018-06-30 08:13] VITALS: BP 134/84; PULSE 56; RESP 19
[2018-06-30] MEDS: LEVETIRACETAM 1000 MG (PMX) 100 ML IVPB SCH (08:16)
[2018-06-30] MEDS: BENAZEPRIL 10 MG TAB PO SCH (08:17)
[2018-06-30] MEDS: PHENOBARBITAL 32.4 MG TAB PO SCH ×2 (08:18→20:35)
[2018-06-30] MEDS: THEOPHYLLINE (SR) 200 MG CAPSR PO SCH (08:18)
[2018-06-30] MEDS: ENOXAPARIN 40 MG/0.4 ML SYG SC SCH (08:21)
[2018-06-30] MEDS ORDERED: PHE30 PO (11:22)
[2018-06-30] MEDS ORDERED: ALBU8.5H8 INH (11:25)
[2018-06-30 14:44] VITALS: BP 113/70; PULSE 66; RESP 18
--- NOTE | 2018-06-30 14:56 | PN ---
Date/Time of Note Date/Time of Note DATE: 06/30/18 TIME: 14:56 Assessment/Plan VTE Prophylaxis Risk score (from Nsg)>0 risk: 1 SCD applied (from Nsg): Yes Pharmacological prophylaxis: LMWH Lines/Catheters IV Catheter Type (from Nrsg): Saline Lock Urinary Cath still in place: No Assessment/Plan Hospital Course SUBJECTIVE: Complains of left lower extremity pain. OBJECTIVE: Physical Exam General: Adequately build 57 year-old male lying in bed in no apparent distress. HEENT: Normocephalic. Eyes: Anicteric sclerae, conjunctivae clear. ENT: Nasal septum midline, oral mucosa is moist. Poor dentition. Neck supple, no JVD noticed. Respiratory: Bilaterally diminished breath sounds. No use of accessory muscles of respiration. No adventitious breath sounds. Cardiovascular: S1, S2 heard. Regular rate and rhythm. Abdomen: Soft, nontender, and nondistended. Bowel sounds positive in all 4 quadrants. Genitourinary: Deferred. Extremities: No cyanosis, no clubbing, no edema. Peripheral pulses palpable. Neurologic: The patient is awake, alert, and oriented. Right eye blindness. Skin: Normal skin turgor. No skin rashes. Labs & Vitals per chart ASSESSMENT & PLAN 57-year-old male with comorbidities including seizure disorder, diabetes mellitus type 2, dyslipidemia, hypertension, and COPD who had an apparent seizure episode because of subtherapeutic phenobarbital since the patient ran out of his phenobarbital. He was initially evaluated at an outside emergency room and is being transferred to [facility] for further evaluation and management because of insurance reasons. 1. Seizure disorder. -Continue Keppra. -Continue phenobarbital. -Seizure precautions. 2. Nonocclusive thrombus of the left common femoral, femoral, and popliteal veins with diminutive proximal and mid femoral veins compatible with chronic thrombus. -Start the patient on therapeutic anticoagulation. -Obtain vascular surgery consult. 3. Diabetes mellitus type 2. -Continue the patient on sliding scale insulin along with pre-meal insulin and basal insulin. -Hemoglobin A1c 8.3. 4. Dyslipidemia. -Continue statins. 5. COPD. -Continue LABA and theophylline. -Monitor closely for any bronchospasms. 6. Hypertension. -Continue antihypertensives. 7. Generalized weakness. -Physical therapy evaluation. 8. Fluids, electrolytes, and nutrition. -Carbohydrate controlled diet. 9. DVT prophylaxis -Therapeutic Lovenox. 10. Plan. -Continue anticonvulsants. -Start therapeutic anticoagulation. -Obtain vascular surgery consult. The patient was seen in collaboration with Dr. Vivar Result Diagram: 06/30/18 0602 06/30/18 0602 Results 24hrs Laboratory Tests Test 06/29/18 17:19 06/29/18 20:55 06/30/18 06:02 06/30/18 07:59 Bedside Glucose 148 121 133 White Blood Count 9.2 Red Blood Count 5.08 Hemoglobin 13.8 L Hematocrit 41.7 L Mean Corpuscular Volume 82.1 Mean Corpuscular 27.2 L Hemoglobin Mean Corpuscular 33.1 Hemoglobin Concent Red Cell Distribution 13.6 Width Platelet Count 257 Mean Platelet Volume 10.7 H Immature Granulocytes % 0.300 Neutrophils % 59.7 Lymphocytes % 27.8 Monocytes % 8.5 Eosinophils % 2.8 Basophils % 0.9 Nucleated Red Blood 0.0 Cells % Immature Granulocytes # 0.030 Neutrophils # 5.5 Lymphocytes # 2.6 Monocytes # 0.8 Eosinophils # 0.3 Basophils # 0.1 Nucleated Red Blood 0.0 Cells # Sodium Level 139 Potassium Level 3.9 Chloride Level 105 Carbon Dioxide Level 24 Anion Gap 10 Blood Urea Nitrogen 10 Creatinine 0.73 Est Glomerular Filtrat > 60 Rate mL/min Glucose Level 126 Calcium Level 9.3 Phosphorus Level 4.2 Magnesium Level 2.1 Test 06/30/18 12:11 Bedside Glucose 189 Exam/Review of Systems Exam Vitals Vital Signs Date Temp Pulse Resp B/P (MAP) Pulse Ox O2 O2 Flow FiO2 Time Delivery Rate 06/30/18 97.9 66 18 113/70 99 14:44 (84) 06/30/18 21 07:57 06/29/18 Room Air 14:00 Intake and Output 06/29/18 06/29/18 06/30/18 1515:00 23:00 07:00 IntakeIntake Total 100 ml 2900 ml 500 ml OutputOutput Total 650 ml 2700 ml 800 ml BalanceBalance -550 ml 200 ml -300 ml Results Results 24hrs Laboratory Tests Test 06/29/18 17:19 06/29/18 20:55 06/30/18 06:02 06/30/18 07:59 Bedside Glucose 148 121 133 White Blood Count 9.2 Red Blood Count 5.08 Hemoglobin 13.8 L Hematocrit 41.7 L Mean Corpuscular Volume 82.1 Mean Corpuscular 27.2 L Hemoglobin Mean Corpuscular 33.1 Hemoglobin Concent Red Cell Distribution 13.6 Width Platelet Count 257 Mean Platelet Volume 10.7 H Immature Granulocytes % 0.300 Neutrophils % 59.7 Lymphocytes % 27.8 Monocytes % 8.5 Eosinophils % 2.8 Basophils % 0.9 Nucleated Red Blood 0.0 Cells % Immature Granulocytes # 0.030 Neutrophils # 5.5 Lymphocytes # 2.6 Monocytes # 0.8 Eosinophils # 0.3 Basophils # 0.1 Nucleated Red Blood 0.0 Cells # Sodium Level 139 Potassium Level 3.9 Chloride Level 105 Carbon Dioxide Level 24 Anion Gap 10 Blood Urea Nitrogen 10 Creatinine 0.73 Est Glomerular Filtrat > 60 Rate mL/min Glucose Level 126 Calcium Level 9.3 Phosphorus Level 4.2 Magnesium Level 2.1 Test 06/30/18 12:11 Bedside Glucose 189 Medications Medication Current Medications IV Flush (NS 3 ml) 3 ml PER PROTOCOL IV ; Start 06/28/18 at 14:00 Ondansetron HCl (Zofran Inj) 4 mg Q6H PRN IV NAUSEA/VOMITING; Start 06/28/18 at 14:00 Acetaminophen (Tylenol Tab) 650 mg Q6H PRN PO .PAIN 1-3 OR TEMP; Start 06/28/18 at 14:00 Lorazepam (Ativan) 1 mg Q2H PRN IV Seizures; Start 06/28/18 at 14:00 Phenobarbital (Luminal) 32.4 mg BID PO Last administered on 06/30/18at 08:18; Admin Dose 32.4 MG; Start 06/28/18 at 21:00 Insulin Glargine (Lantus) 13 units DAILY@2000 SC Last administered on 06/29/18at 20:59; Admin Dose 13 UNITS; Start 06/28/18 at 20:00 Insulin Aspart (Novolog Insulin Pen) 4 unit WITH MEALS SC Last administered on 06/30/18at 13:31; Admin Dose 4 UNIT; Start 06/28/18 at 17:35 Insulin Aspart (Novolog Insulin Pen) NOVOLOG *MILD* ALGORITHM WITH MEALS BEDTIME SC Last administered on 06/30/18at 13:31; Admin Dose 2 UNIT; Start 06/28/18 at 18:05 Miscellaneous Information 1 ea NOTE XX ; Start 06/28/18 at 15:00 Glucose (Glutose) 15 gm Q15M PRN PO DECREASED GLUCOSE; Start 06/28/18 at 15:00 Glucose (Glutose) 22.5 gm Q15M PRN PO DECREASED GLUCOSE; Start 06/28/18 at 15:00 Dextrose (D50w Syringe) 25 ml Q15M PRN IV DECREASED GLUCOSE; Start 06/28/18 at 15:00 Dextrose (D50w Syringe) 50 ml Q15M PRN IV DECREASED GLUCOSE; Start 06/28/18 at 15:00 Glucagon (Glucagen) 1 mg Q15M PRN IM DECREASED GLUCOSE; Start 06/28/18 at 15:00 Glucose (Glutose) 15 gm Q15M PRN BUCCAL DECREASED GLUCOSE; Start 06/28/18 at 15:00 Atorvastatin Calcium (Lipitor) 20 mg QHS PO Last administered on 06/29/18 20:59; Admin Dose 20 MG; Start 06/28/18 at 21:00 Benazepril HCl (Lotensin) 10 mg DAILY PO Last administered on 06/30/18 08:17; Admin Dose 10 MG; Start 06/29/18 at 09:00 Tramadol HCl (Ultram) 50 mg Q6H PRN PO MODERATE PAIN LEVEL 4-6 Last administered on 06/30/18 04:39; Admin Dose 50 MG; Start 06/28/18 at 16:30 Montelukast Sodium (Singulair) 10 mg HS PO Last administered on 06/29/18 20:59; Admin Dose 10 MG; Start 06/29/18 at 21:00 Arformoterol Tartrate (Brovana (Neb)) 2 ml Q12H RESP THERAPY NEB Last administered on 06/30/18 07:49; Admin Dose 2 ML; Start 06/29/18 at 12:30 Theophylline (Otis-24) 400 mg DAILY PO Last administered on 06/30/18 08:18; Admin Dose 400 MG; Start 06/29/18 at 13:00 Pantoprazole (Protonix Tab) 40 mg DAILY@06 PO Last administered on 06/30/18at 06:39; Admin Dose 40 MG; Start 06/30/18 at 06:00 Metformin HCl (Glucophage) 500 mg BID WITH MEALS PO ; Start 06/30/18 at 18:05 Levetiracetam (Keppra) 1,500 mg BID PO ; Start 06/30/18 at 21:00 Enoxaparin Sodium (Lovenox) 85 mg Q12 SC ; Start 06/30/18 at 21:00 GIANNA CHAVEZ NP Jun 30, 2018 14:56
[2018-06-30] MEDS: metFORMIN 500 MG TAB PO SCH (18:24)
[2018-06-30] MEDS: LEVETIRACETAM 750 MG TAB PO SCH (20:35)
[2018-06-30] MEDS: ATORVASTATIN 20 MG TAB PO SCH (20:36)
[2018-06-30] MEDS: MONTELUKAST 10 MG TAB PO SCH (20:36)
[2018-06-30] MEDS: ENOXAPARIN 100 MG/ML SYG SC SCH (20:37)
[2018-06-30] MEDS: INSULIN GLARGINE [LANTus] (100 UNITS/ML) SYG SC SCH (20:38)
[2018-06-30 20:51] VITALS: BP 124/74; PULSE 60; RESP 20
[2018-06-30] MEDS ORDERED: LEVETIRACETAM 500 MG TAB PO SCH (21:00)
[2018-07-01] MEDS: traMADol 50 MG TAB PO PRN ×2 (01:44→10:33)
[2018-07-01 02:51] VITALS: BP 134/90; PULSE 50; RESP 16
[2018-07-01] MEDS: PANTOPRAZOLE (EC) 40 MG TAB PO SCH (05:18)
[2018-07-01] MEDS: INSULIN ASPART [NOVOLOG] 3 ML PEN SC SCH ×6 (08:00→17:37)
[2018-07-01] MEDS: LEVETIRACETAM 750 MG TAB PO SCH (08:18)
[2018-07-01] MEDS: ENOXAPARIN 100 MG/ML SYG SC SCH (08:19)
[2018-07-01] MEDS: BENAZEPRIL 10 MG TAB PO SCH (08:22)
[2018-07-01] MEDS: PHENOBARBITAL 32.4 MG TAB PO SCH (08:22)
[2018-07-01] MEDS: metFORMIN 500 MG TAB PO SCH (08:24)
[2018-07-01 08:38] VITALS: BP 119/82; PULSE 64; RESP 20
[2018-07-01] MEDS: ARFORMOTEROL TARTRATE 15MCG/2 ML AMP NEB SCH (09:59)
[2018-07-01] MEDS ORDERED: IOHEXOL 100 ML ONE (11:52)
[2018-07-01] MEDS ORDERED: SOD CHLORIDE 0.9% 100 ML ONE (11:52)
[2018-07-01] MEDS: THEOPHYLLINE (SR) 200 MG CAPSR PO SCH (12:02)
--- NOTE | 2018-07-01 12:50 | CONS ---
Assessment/Plan Assessment/Plan Assessment/Plan (Daily) Left lower extremity DVT involving the left common femoral vein popliteal vein patient is currently being treated with Lovenox Would need long-term anticoagulation for 3-6 months with a p.o. agent will follow-up in my office Consultation Date/Type/Reason Admit Date/Time Jun 28, 2018 at 12:09 Date of Consultation: Jul 01, 2018 Type of Consult Vascular surgery Reason for Consultation DVT lower extremity Date/Time of Note DATE: 07/01/18 TIME: 12:48 Hx of Present Illness 57-year-old male with a history of lower extremity swelling was admitted underwent Doppler examination of the lower extremity which was positive for lower extremity DVT in the left common femoral vein and left popliteal vein the DVT is non-occlusive she is currently being treated with anticoagulation IMPRESSION: Nonocclusive thrombus of the left common femoral, femoral and popliteal veins. Diminutive proximal and mid femoral veins compatible with chronic thrombus. Past Medical History Home Meds Reported Medications Benazepril Hcl* (Benazepril Hcl*) 10 Mg Tablet, 10 MG PO DAILY, #30 TAB 11/29/17 Theophylline Anhydrous* (Theophylline* ER) 400 Mg Tablet.sa, 400 MG PO BID, TAB.SA 11/29/17 Levetiracetam* (Keppra*) 750 Mg Tablet, 1500 MG PO BID, TAB 11/29/17 Montelukast Sodium* (Montelukast Sodium*) 10 Mg Tablet, 10 MG PO QHS, #30 TAB 11/29/17 Atorvastatin Calcium* (Atorvastatin Calcium*) 20 Mg Tablet, 20 MG PO QHS, #30 TAB 11/29/17 Amlodipine Besylate* (Amlodipine Besylate*) 10 Mg Tablet, 10 MG PO DAILY, #30 TAB 11/29/17 Sitagliptin* (Januvia*) 50 Mg Tablet, 50 MG PO DAILY, #30 TAB 10/20/17 Phenobarbital* (Phenobarbital*) 64.8 Mg Tablet, 64.8 MG PO DAILY, TAB 10/20/17 Levalbuterol* (Xopenex* HFA) 15 Gm Inha, 2 PUFFS INH Q4H PRN for WHEEZING AND SOB, INHALER 10/20/17 Medications Current Medications IV Flush (NS 3 ml) 3 ml PER PROTOCOL IV ; Start 06/28/18 at 14:00 Ondansetron HCl (Zofran Inj) 4 mg Q6H PRN IV NAUSEA/VOMITING; Start 06/28/18 at 14:00 Acetaminophen (Tylenol Tab) 650 mg Q6H PRN PO .PAIN 1-3 OR TEMP Last administered on 07/01/18at 05:18; Admin Dose 650 MG; Start 06/28/18 at 14:00 Lorazepam (Ativan) 1 mg Q2H PRN IV Seizures; Start 06/28/18 at 14:00 Phenobarbital (Luminal) 32.4 mg BID PO Last administered on 07/01/18at 08:22; Admin Dose 32.4 MG; Start 06/28/18 at 21:00 Insulin Glargine (Lantus) 13 units DAILY@2000 SC Last administered on 06/30/18 20:38; Admin Dose 13 UNITS; Start 06/28/18 at 20:00 Insulin Aspart (Novolog Insulin Pen) 4 unit WITH MEALS SC Last administered on 07/01/18 11:57; Admin Dose 4 UNIT; Start 06/28/18 at 17:35 Insulin Aspart (Novolog Insulin Pen) NOVOLOG *MILD* ALGORITHM WITH MEALS BEDTIME SC Last administered on 07/01/18 11:58; Admin Dose 1 UNIT; Start 06/28/18 at 18:05 Miscellaneous Information 1 ea NOTE XX ; Start 06/28/18 at 15:00 Glucose (Glutose) 15 gm Q15M PRN PO DECREASED GLUCOSE; Start 06/28/18 at 15:00 Glucose (Glutose) 22.5 gm Q15M PRN PO DECREASED GLUCOSE; Start 06/28/18 at 15:00 Dextrose (D50w Syringe) 25 ml Q15M PRN IV DECREASED GLUCOSE; Start 06/28/18 at 15:00 Dextrose (D50w Syringe) 50 ml Q15M PRN IV DECREASED GLUCOSE; Start 06/28/18 at 15:00 Glucagon (Glucagen) 1 mg Q15M PRN IM DECREASED GLUCOSE; Start 06/28/18 at 15:00 Glucose (Glutose) 15 gm Q15M PRN BUCCAL DECREASED GLUCOSE; Start 06/28/18 at 15:00 Atorvastatin Calcium (Lipitor) 20 mg QHS PO Last administered on 06/30/18 20:36; Admin Dose 20 MG; Start 06/28/18 at 21:00 Benazepril HCl (Lotensin) 10 mg DAILY PO Last administered on 07/01/18 08:22; Admin Dose 10 MG; Start 06/29/18 at 09:00 Tramadol HCl (Ultram) 50 mg Q6H PRN PO MODERATE PAIN LEVEL 4-6 Last administered on 07/01/18 10:33; Admin Dose 50 MG; Start 06/28/18 at 16:30 Montelukast Sodium (Singulair) 10 mg HS PO Last administered on 06/30/18 20:36; Admin Dose 10 MG; Start 06/29/18 at 21:00 Arformoterol Tartrate (Brovana (Neb)) 2 ml Q12H RESP THERAPY NEB Last administered on 07/01/18 09:59; Admin Dose 2 ML; Start 06/29/18 at 12:30 Theophylline (Otis-24) 400 mg DAILY PO Last administered on 07/01/18 12:02; Admin Dose 400 MG; Start 06/29/18 at 13:00 Pantoprazole (Protonix Tab) 40 mg DAILY@06 PO Last administered on 07/01/18 05:18; Admin Dose 40 MG; Start 06/30/18 at 06:00 Levetiracetam (Keppra) 1,500 mg BID PO Last administered on 07/01/18 08:18; Admin Dose 1,500 MG; Start 06/30/18 at 21:00 Enoxaparin Sodium (Lovenox) 85 mg Q12 SC Last administered on 07/01/18 08:19; Admin Dose 85 MG; Start 06/30/18 at 21:00 Allergies: Coded Allergies: No Known Allergies (Verified Allergy, Mild, 11/29/17) Social History Alcohol Use: none Smoking Status: Current every day smoker Drug Use: marijuana Exam/Review of Systems Exam Vitals Vital Signs Date Temp Pulse Resp B/P (MAP) Pulse Ox O2 O2 Flow FiO2 Time Delivery Rate 07/01/18 68 20 97 21 10:00 07/01/18 97.7 119/82 Room Air 08:38 (94) Intake and Output 06/30/18 06/30/18 07/01/18 1515:00 23:00 07:00 IntakeIntake Total 1860 ml 460 ml OutputOutput Total 2700 ml 300 ml 2400 ml BalanceBalance -840 ml 160 ml -2400 ml Eyes: nl conjunctiva, EOMI, nl lids, nl sclera, PERRL ENMT: nl external ears & nose, nl lips & teeth, nl nasal mucosa & septum Neck: supple, non-tender Respiratory: clear to auscultation, normal air movement Cardiovascular: regular rate and rhythm, nl pulses Gastrointestinal: soft, nl liver, spleen, non-tender Musculoskeletal: nl extremities to inspection, nl gait and stance Results Result Diagram: 06/30/18 0602 06/30/18 0602 Results 24hrs Laboratory Tests Test 06/30/18 17:29 06/30/18 20:34 07/01/18 07:53 07/01/18 11:56 Bedside Glucose 134 152 115 154 Medications Medication Current Medications IV Flush (NS 3 ml) 3 ml PER PROTOCOL IV ; Start 06/28/18 at 14:00 Ondansetron HCl (Zofran Inj) 4 mg Q6H PRN IV NAUSEA/VOMITING; Start 06/28/18 at 14:00 Acetaminophen (Tylenol Tab) 650 mg Q6H PRN PO .PAIN 1-3 OR TEMP Last administered on 07/01/18at 05:18; Admin Dose 650 MG; Start 06/28/18 at 14:00 Lorazepam (Ativan) 1 mg Q2H PRN IV Seizures; Start 06/28/18 at 14:00 Phenobarbital (Luminal) 32.4 mg BID PO Last administered on 07/01/18at 08:22; Admin Dose 32.4 MG; Start 06/28/18 at 21:00 Insulin Glargine (Lantus) 13 units DAILY@2000 SC Last administered on 06/30/18at 20:38; Admin Dose 13 UNITS; Start 06/28/18 at 20:00 Insulin Aspart (Novolog Insulin Pen) 4 unit WITH MEALS SC Last administered on 07/01/18 11:57; Admin Dose 4 UNIT; Start 06/28/18 at 17:35 Insulin Aspart (Novolog Insulin Pen) NOVOLOG *MILD* ALGORITHM WITH MEALS BEDTIME SC Last administered on 07/01/18 11:58; Admin Dose 1 UNIT; Start 06/28/18 at 18:05 Miscellaneous Information 1 ea NOTE XX ; Start 06/28/18 at 15:00 Glucose (Glutose) 15 gm Q15M PRN PO DECREASED GLUCOSE; Start 06/28/18 at 15:00 Glucose (Glutose) 22.5 gm Q15M PRN PO DECREASED GLUCOSE; Start 06/28/18 at 15:00 Dextrose (D50w Syringe) 25 ml Q15M PRN IV DECREASED GLUCOSE; Start 06/28/18 at 15:00 Dextrose (D50w Syringe) 50 ml Q15M PRN IV DECREASED GLUCOSE; Start 06/28/18 at 15:00 Glucagon (Glucagen) 1 mg Q15M PRN IM DECREASED GLUCOSE; Start 06/28/18 at 15:00 Glucose (Glutose) 15 gm Q15M PRN BUCCAL DECREASED GLUCOSE; Start 06/28/18 at 15:00 Atorvastatin Calcium (Lipitor) 20 mg QHS PO Last administered on 06/30/18 20:36; Admin Dose 20 MG; Start 06/28/18 at 21:00 Benazepril HCl (Lotensin) 10 mg DAILY PO Last administered on 07/01/18 08:22; Admin Dose 10 MG; Start 06/29/18 at 09:00 Tramadol HCl (Ultram) 50 mg Q6H PRN PO MODERATE PAIN LEVEL 4-6 Last administe red on 07/01/18 10:33; Admin Dose 50 MG; Start 06/28/18 at 16:30 Montelukast Sodium (Singulair) 10 mg HS PO Last administered on 06/30/18 20:36; Admin Dose 10 MG; Start 06/29/18 at 21:00 Arformoterol Tartrate (Brovana (Neb)) 2 ml Q12H RESP THERAPY NEB Last administered on 07/01/18 09:59; Admin Dose 2 ML; Start 06/29/18 at 12:30 Theophylline (Otis-24) 400 mg DAILY PO Last administered on 07/01/18 12:02; Admin Dose 400 MG; Start 06/29/18 at 13:00 Pantoprazole (Protonix Tab) 40 mg DAILY@06 PO Last administered on 07/01/18 05:18; Admin Dose 40 MG; Start 06/30/18 at 06:00 Levetiracetam (Keppra) 1,500 mg BID PO Last administered on 07/01/18 08:18; Admin Dose 1,500 MG; Start 06/30/18 at 21:00 Enoxaparin Sodium (Lovenox) 85 mg Q12 SC Last administered on 07/01/18at 08:19; Admin Dose 85 MG; Start 06/30/18 at 21:00 STEVE KAPLAN MD Jul 01, 2018 12:50
[2018-07-01 14:28] VITALS: BP 120/78; PULSE 68; RESP 18
--- NOTE | 2018-07-01 14:53 | PDOCDIS ---
Discharge Instructions CONDITION [id number] Patient Condition: [id number] Stable HOME CARE INSTRUCTIONS: [id number] Special Diet: [id number] Carbohydrate controlled diet. FOLLOW UP/APPOINTMENTS Follow-up Plan Isai Grant MD Specialty: Vascular Surgery Office Address [address] [place] [address] Office OTHER ORDERS: Other Orders: 1. Take medications as per prescription. Start taking blood thinners (Eliquis). 2. Follow a low carbohydrate diet. 3. Follow-up with your primary care physician in 2 weeks. 4. Follow-up with vascular surgery (Dr. Grant) in 2 weeks. Please call for appointment. 5. Please go to the nearest emergency room if you have any chest pain, sudden onset of focal weakness, speech disturbances, or any other unusual signs/symptoms. GIANNA CHAVEZ NP Jul 01, 2018 14:53
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
== END 2018-07-01 17:50 | disposition home or self-care (01) | DRG 101 ==
LOC: PP2 12:09
PROVIDERS: ADMIT Internal Medicine; ATTEND Internal Medicine
DX: G40.909 Epilepsy, unspecified, not intractable, without status epilepticus (principal); I82.512 Chronic embolism and thrombosis of left femoral vein; I82.532 Chronic embolism and thrombosis of left popliteal vein; E78.5 Hyperlipidemia, unspecified; J44.9 Chronic obstructive pulmonary disease, unspecified; E11.8 Type 2 diabetes mellitus with unspecified complications; I10 Essential (primary) hypertension; R53.1 Weakness; F17.200 Nicotine dependence, unspecified, uncomplicated; H54.40 Blindness, one eye, unspecified eye
CPT/HCPCS: 71275; 73510; 80048; 80053; 80061; 80184; 80198; 80307; 82962; 83036; 83735; 84100; 84439; 84443; 85025; 85610; 85730; 87081; 93971; 94640; 94664; 97116; 97162; 97530; J1650; J1815; J1953; Q9967